=== PATIENT | male | born 1960 | race Caucasian/White ===

== ENCOUNTER 2017-07-02 09:36 | Emergency (ER) | payer OTHER, BC | END 2017-07-02 11:00 | disposition home or self-care (01) | LOC: E/R 09:36 | DX: J20.9 Acute bronchitis, unspecified (principal) | CPT/HCPCS: 99284; Z7502 ==

== ENCOUNTER 2017-09-02 08:04 | Inpatient (IN) | payer OTHER ==
[2017-09-02] MEDS: SOD CHLORIDE 0.9% 1,000 ML IV (08:26)
[2017-09-02 08:38] LABS: ABNORMAL IP MESSAGE 1; HEMATOCRIT 20.3 % (42.0-52.0); HEMOGLOBIN 7.2 g/dl (14.0-18.0); MEAN CORPUSCULAR HEMOGLOBIN 36.9 pg (29.0-33.0); MEAN CORPUSCULAR HGB CONC 35.5 g/dl (32.0-37.0); MEAN CORPUSCULAR VOLUME 104.1 fl (82.0-101.0); MEAN PLATELET VOLUME 10.3 fl (7.4-10.4); NUCLEATED RED BLOOD CELLS% 0.9 /100WBC (0.0-0.0); PLATELET COUNT 229 10^3/UL (140-415); POSITIVE DIFF @See below; RED BLOOD COUNT 1.95 10^6/ul (4.70-6.10); RED CELL DISTRIBUTION WIDTH 16.7 % (11.5-14.5)
[2017-09-02 08:43] LABS: ADD MAN DIFF? YES
[2017-09-02 08:43] LABS: WHITE BLOOD COUNT 457.1 10^3/ul (4.8-10.8)
[2017-09-02 08:55] LABS: ALANINE AMINOTRANSFERASE 13 IU/L (13-69); ALBUMIN 3.9 g/dl (3.3-4.9); ALBUMIN/GLOBULIN RATIO 1.14; ALKALINE PHOSPHATASE 66 IU/L (42-121); ANION GAP 13 (8-16); ASPARTATE AMINO TRANSFERASE 38 IU/L (15-46); BILIRUBIN,INDIRECT 0.5 mg/dl (0-1.1); BILIRUBIN,TOTAL 0.5 mg/dl (0.2-1.3); BLOOD UREA NITROGEN 27 mg/dl (7-20); CARBON DIOXIDE 24 mmol/L (21-31); CHLORIDE 112 mmol/L (97-110); CREATININE 1.15 mg/dl (0.61-1.24); GLUCOSE 124 mg/dl (70-220); POTASSIUM 3.5 mmol/L (3.5-5.1); SODIUM 145 mmol/L (135-144); TOTAL PROTEIN 7.3 g/dl (6.1-8.1)
[2017-09-02 08:56] LABS: LACTIC ACID 1.2 mmol/L (0.5-2.0)
[2017-09-02 09:01] LABS: INR 1.21; PROTIME 15.5 Sec (11.9-14.9); PT RATIO 1.2
[2017-09-02 09:02] LABS: PARTIAL THROMBOPLASTIN TIME 35.4 Sec (25.0-35.0)
[2017-09-02 09:06] LABS: B-TYPE NATRIURETIC PEPTIDE 46 PG/ML (0-125)
[2017-09-02 09:12] LABS: TROPONIN-I < 0.012 ng/ml (0.000-0.120)
[2017-09-02] MEDS: IOHEXOL 100 ML (09:52)
[2017-09-02] MEDS: SOD CHLORIDE 0.9% 100 ML (09:52)
[2017-09-02] MEDS: SOD CHLORIDE 0.9% 250 ML IV (10:13)
[2017-09-02 10:29] LABS: ANISOCYTOSIS 1+ (0-0); BAND NEUTROPHILS #M 77.7 10^3/ul (0.0-0.6); BAND NEUTROPHILS % (M) 17 % (0-4); BASOPHIL #M 13.7 10^3/ul (0.0-0.0); BASOPHILS % (M) 3 % (0-2); BLAST% (M) 13.7 % (0-0); EOSINOPHILS % (M) 10 % (0-7); ERYTHROBLAST% (NRBC) (M) 1 % (0-0); LYMPHOCYTES #M 9.1 10^3/ul (0.8-2.9); LYMPHOCYTES % (M) 2 % (15-51); METAMYELOCYTES #M 4.5 10^3/ul (0.0-0.0); METAMYELOCYTES %M 1 % (0-0); MICROCYTOSIS 1+ (0-0); MONOCYTE #M 18.2 10^3/ul (0.3-0.9); MONOCYTES % (M) 4 % (0-11); MYELOCYTES #M 9.1 10^3/ul (0.0-0.0); MYELOCYTES % (M) 2 % (0-0); PLATELET ESTIMATE NORMAL; POLYCHROMASIA 3+ (0-0); RBC MORPHOLOGY COMMENT @See below; REACTIVE LYMPHOCYTES #M 9.1 10^3/ul (0.0-0.0); REACTIVE LYMPHOCYTES% (M) 2 % (0-0); SEG NEUT #M 565.4 10^3/ul (1.6-7.5); SEGMENTED NEUTROPHILS (M) % 46 % (39-77); SMUDGE%M 17 % (0-0); WBC MORPHOLOGY COMMENT @See below
[2017-09-02 11:02] LABS: URIC ACID 9.4 mg/dl (3.1-7.9)
[2017-09-02 11:02] LABS: LACTATE DEHYDROGENASE 1742 IU/L (313-618)
[2017-09-02 11:04] LABS: LACTIC ACID 0.6 mmol/L (0.5-2.0)
[2017-09-02] MEDS: HYDROXYUREA 500 MG CAP PO ×2 (11:14→21:14)
[2017-09-02] MEDS: ALLOPURINOL 300 MG TAB PO (11:14)
[2017-09-02 11:19] LABS: LACTIC ACID 0.6 mmol/L (0.5-2.0)
[2017-09-02] MEDS ORDERED: ACETAMINOPHEN 325 MG TAB PO (11:30)
[2017-09-02] MEDS ORDERED: ONDANSETRON 4 MG INJ IV ×2 (11:30→14:30)
[2017-09-02 11:41] LABS: ADD UMIC NO; UR ASCORBIC ACID NEGATIVE (NEGATIVE); UR BILIRUBIN (Dip) NEGATIVE (NEGATIVE); UR BLOOD (Dip) NEGATIVE (NEGATIVE); UR CLARITY CLEAR (CLEAR); UR COLOR YELLOW (YELLOW); UR GLUCOSE (Dip) NEGATIVE (NEGATIVE); UR KETONES (Dip) NEGATIVE (NEGATIVE); UR LEUKOCYTE ESTERASE (Dip) NEGATIVE Leu/ul (NEGATIVE); UR NITRITE (Dip) NEGATIVE (NEGATIVE); UR SPECIFIC GRAVITY (Dip) 1.046 (1.003-1.030); UR TOTAL PROTEIN (Dip) NEGATIVE (NEGATIVE); UR UROBILINOGEN (Dip) NEGATIVE (NEGATIVE)
[2017-09-02] MEDS ORDERED: ALBUTEROL/IPRATROPIUM (NEB) 3 ML AMP HHN (14:30)
[2017-09-02] MEDS: ACETAMINOPHEN 325 MG TAB PO (17:28)
[2017-09-02] MEDS: FAMOTIDINE 20 MG TAB PO ×2 (19:34→21:15)
[2017-09-02] MEDS: ALBUTEROL/IPRATROPIUM (NEB) 3 ML AMP HHN (20:49)
[2017-09-03] MEDS: ALBUTEROL/IPRATROPIUM (NEB) 3 ML AMP HHN ×2 (01:36→08:32)
[2017-09-03 06:17] LABS: ABNORMAL IP MESSAGE 1; HEMATOCRIT 19.1 % (42.0-52.0); MEAN CORPUSCULAR HEMOGLOBIN 36.1 pg (29.0-33.0); MEAN CORPUSCULAR HGB CONC 36.1 g/dl (32.0-37.0); MEAN PLATELET VOLUME 10.5 fl (7.4-10.4); NUCLEATED RED BLOOD CELLS% 1.2 /100WBC (0.0-0.0); PLATELET COUNT 169 10^3/UL (140-415); POSITIVE DIFF @See below; RED BLOOD COUNT 1.91 10^6/ul (4.70-6.10); RED CELL DISTRIBUTION WIDTH 16.8 % (11.5-14.5)
[2017-09-03 06:25] LABS: ADD MAN DIFF? YES
[2017-09-03 06:27] LABS: HEMOGLOBIN 6.9 g/dl (14.0-18.0)
[2017-09-03 06:51] LABS: ALANINE AMINOTRANSFERASE 23 IU/L (13-69); ALBUMIN 3.2 g/dl (3.3-4.9); ALBUMIN/GLOBULIN RATIO 1.06; ALKALINE PHOSPHATASE 57 IU/L (42-121); ANION GAP 11 (8-16); ASPARTATE AMINO TRANSFERASE 35 IU/L (15-46); BILIRUBIN,INDIRECT 0.7 mg/dl (0-1.1); BILIRUBIN,TOTAL 0.7 mg/dl (0.2-1.3); BLOOD UREA NITROGEN 20 mg/dl (7-20); CALCIUM 8.3 mg/dl (8.4-10.2); CARBON DIOXIDE 23 mmol/L (21-31); CHLORIDE 112 mmol/L (97-110); CREATININE 0.95 mg/dl (0.61-1.24); GLUCOSE 103 mg/dl (70-220); POTASSIUM 3.3 mmol/L (3.5-5.1); SODIUM 143 mmol/L (135-144); TOTAL PROTEIN 6.2 g/dl (6.1-8.1)
[2017-09-03 08:29] LABS: ANISOCYTOSIS 1+ (0-0); BAND NEUTROPHILS % (M) 25 % (0-4); BASOPHIL #M 43.6 10^3/ul (0.0-0.0); BASOPHILS % (M) 13 % (0-2); EOSINOPHILS % (M) 4 % (0-7); ERYTHROBLAST% (NRBC) (M) 4 % (0-0); GIANT THROMBO% (M) 1 % (0-0); HYPOCHROMASIA 1+ (0-0); LYMPHOCYTES % (M) 3 % (15-51); METAMYELOCYTES %M 3 % (0-0); MONOCYTE #M 33.6 10^3/ul (0.3-0.9); MONOCYTES % (M) 10 % (0-11); MYELOCYTES #M 40.3 10^3/ul (0.0-0.0); MYELOCYTES % (M) 12 % (0-0); PLATELET ESTIMATE NORMAL; POIKILOCYTOSIS 1+ (0-0); POLYCHROMASIA 1+ (0-0); PROMYELOCYTES #M 20.1 10^3/ul (0-0); PROMYELOCYTES % (M) 6 % (0-0); REACTIVE LYMPHOCYTES #M 6.7 10^3/ul (0.0-0.0); REACTIVE LYMPHOCYTES% (M) 2 % (0-0); SEG NEUT #M 346.1 10^3/ul (1.6-7.5); SEGMENTED NEUTROPHILS (M) % 19 % (39-77)
[2017-09-03] MEDS: FAMOTIDINE 20 MG TAB PO ×2 (09:30→20:45)
[2017-09-03] MEDS: HYDROXYUREA 500 MG CAP PO ×2 (09:31→20:47)
[2017-09-03 10:14] LABS: IMMEDIATE SPIN CROSSMATCH 1 3
[2017-09-03] MEDS: POTASSIUM CHLORIDE (SR) 20 MEQ TAB PO (16:52)
[2017-09-03] MEDS: ACETAMINOPHEN 325 MG TAB PO (20:44)
[2017-09-04 06:22] LABS: WHITE BLOOD COUNT 370.4 10^3/ul (4.8-10.8)
[2017-09-04 06:22] LABS: ABNORMAL IP MESSAGE 1; HEMOGLOBIN 8.3 g/dl (14.0-18.0); MEAN CORPUSCULAR HEMOGLOBIN 35.8 pg (29.0-33.0); MEAN CORPUSCULAR HGB CONC 36.1 g/dl (32.0-37.0); MEAN CORPUSCULAR VOLUME 99.1 fl (82.0-101.0); MEAN PLATELET VOLUME 10.7 fl (7.4-10.4); NUCLEATED RED BLOOD CELLS% 1.2 /100WBC (0.0-0.0); PLATELET COUNT 210 10^3/UL (140-415); RED BLOOD COUNT 2.32 10^6/ul (4.70-6.10); RED CELL DISTRIBUTION WIDTH 16.7 % (11.5-14.5)
[2017-09-04 06:45] LABS: ADD MAN DIFF? YES
[2017-09-04 07:18] LABS: ANION GAP 9 (8-16); BLOOD UREA NITROGEN 16 mg/dl (7-20); CALCIUM 8.5 mg/dl (8.4-10.2); CARBON DIOXIDE 23 mmol/L (21-31); CHLORIDE 114 mmol/L (97-110); CREATININE 0.95 mg/dl (0.61-1.24); GLUCOSE 97 mg/dl (70-220); POTASSIUM 3.3 mmol/L (3.5-5.1); SODIUM 143 mmol/L (135-144)
[2017-09-04] MEDS: ALLOPURINOL 100 MG TAB PO (08:34)
[2017-09-04] MEDS: FAMOTIDINE 20 MG TAB PO ×2 (08:34→20:58)
[2017-09-04] MEDS: HYDROXYUREA 500 MG CAP PO ×3 (08:38→20:58)
[2017-09-04 10:19] LABS: BAND NEUTROPHILS #M 59.2 10^3/ul (0.0-0.6); BAND NEUTROPHILS % (M) 16 % (0-4); BASOPHIL # 14.8 10^3/ul (0.0-0.1); BLASTOCYTES #M 41.1 10^3/ul (0.0-0.0); EOSINOPHILS # 14.8 10^3/ul (0.0-0.5); EOSINOPHILS % (M) 4 % (0.0-7.0); ERYTHROBLAST% (NRBC) (M) 3 % (0-0); LYMPHOCYTES # 7.4 10^3/ul (0.8-2.9); LYMPHOCYTES #M 7.4 10^3/ul (0.8-2.9); LYMPHOCYTES % (M) 2 % (15-51); METAMYELOCYTES #M 3.7 10^3/ul (0.0-0.0); METAMYELOCYTES %M 1 % (0-0); MONOCYTE # 3.7 10^3/ul (0.3-0.9); MONOCYTE #M 3.7 10^3/ul (0.3-0.9); MONOCYTES % (M) 1 % (0-11); MYELOCYTES #M 70.3 10^3/ul (0.0-0.0); MYELOCYTES % (M) 19 % (0-0); PROMYELOCYTES #M 29.6 10^3/ul (0-0); PROMYELOCYTES % (M) 8 % (0-0); SEG NEUT #M 374.8 10^3/ul (1.7-7.5); SEGMENTED NEUTROPHILS (M) % 42 % (39-77)
[2017-09-04 10:22] LABS: POLYCHROMASIA 1+ (0-0)
[2017-09-04 11:54] LABS: URIC ACID 7.4 mg/dl (3.1-7.9)
[2017-09-04] MEDS: ZOLPIDEM 5 MG TAB PO (21:01)
[2017-09-05 05:41] LABS: ABNORMAL IP MESSAGE 1; HEMATOCRIT 23.4 % (42.0-52.0); HEMOGLOBIN 8.3 g/dl (14.0-18.0); MEAN CORPUSCULAR HEMOGLOBIN 35.5 pg (29.0-33.0); MEAN CORPUSCULAR HGB CONC 35.5 g/dl (32.0-37.0); MEAN PLATELET VOLUME 10.7 fl (7.4-10.4); NUCLEATED RED BLOOD CELLS% 0.8 /100WBC (0.0-0.0); PLATELET COUNT 240 10^3/UL (140-415); RED BLOOD COUNT 2.34 10^6/ul (4.70-6.10); RED CELL DISTRIBUTION WIDTH 16.4 % (11.5-14.5)
[2017-09-05 05:46] LABS: ADD MAN DIFF? YES
[2017-09-05 06:14] LABS: ANION GAP 8 (8-16); BLOOD UREA NITROGEN 16 mg/dl (7-20); CALCIUM 8.7 mg/dl (8.4-10.2); CARBON DIOXIDE 25 mmol/L (21-31); CHLORIDE 112 mmol/L (97-110); GLUCOSE 116 mg/dl (70-220); POTASSIUM 3.2 mmol/L (3.5-5.1); SODIUM 142 mmol/L (135-144)
[2017-09-05 07:52] LABS: ANISOCYTOSIS 1+ (0-0); LYMPHOCYTES % (M) 3 % (15-51); MICROCYTOSIS 1+ (0-0); PLATELET ESTIMATE NORMAL; POLYCHROMASIA 1+ (0-0); SMUDGE%M 3 % (0-0)
[2017-09-05] MEDS: ALLOPURINOL 100 MG TAB PO (08:37)
[2017-09-05] MEDS: FAMOTIDINE 20 MG TAB PO ×2 (08:37→22:16)
[2017-09-05] MEDS: HYDROXYUREA 500 MG CAP PO ×3 (08:39→22:18)
[2017-09-05] MEDS: POTASSIUM CHLORIDE (SR) 20 MEQ TAB PO (18:46)
[2017-09-06 05:46] LABS: ABNORMAL IP MESSAGE 1; HEMATOCRIT 24.2 % (42.0-52.0); HEMOGLOBIN 8.5 g/dl (14.0-18.0); MEAN CORPUSCULAR HEMOGLOBIN 34.6 pg (29.0-33.0); MEAN CORPUSCULAR HGB CONC 35.1 g/dl (32.0-37.0); MEAN CORPUSCULAR VOLUME 98.4 fl (82.0-101.0); MEAN PLATELET VOLUME 10.7 fl (7.4-10.4); NUCLEATED RED BLOOD CELLS% 1.1 /100WBC (0.0-0.0); PLATELET COUNT 257 10^3/UL (140-415); POSITIVE DIFF @See below; RED BLOOD COUNT 2.46 10^6/ul (4.70-6.10); RED CELL DISTRIBUTION WIDTH 16.1 % (11.5-14.5)
[2017-09-06 05:46] LABS: WHITE BLOOD COUNT 295.2 10^3/ul (4.8-10.8)
[2017-09-06 06:35] LABS: ADD MAN DIFF? YES
[2017-09-06] MEDS: FAMOTIDINE 20 MG TAB PO ×2 (08:53→20:29)
[2017-09-06] MEDS: HYDROXYUREA 500 MG CAP PO ×4 (08:53→20:28)
[2017-09-06] MEDS: ALLOPURINOL 100 MG TAB PO ×2 (08:53→17:14)
[2017-09-06 09:19] LABS: ANISOCYTOSIS 1+ (0-0); BAND NEUTROPHILS % (M) 19 % (0-4); BASOPHIL #M 8.8 10^3/ul (0.0-0.0); BASOPHILS % (M) 3 % (0-2); EOSINOPHILS % (M) 1 % (0-7); ERYTHROBLAST% (NRBC) (M) 1 % (0-0); LYMPHOCYTES #M 14.7 10^3/ul (0.8-2.9); LYMPHOCYTES % (M) 5 % (15-51); METAMYELOCYTES #M 20.6 10^3/ul (0.0-0.0); METAMYELOCYTES %M 7 % (0-0); MONOCYTE #M 14.7 10^3/ul (0.3-0.9); MONOCYTES % (M) 5 % (0-11); MYELOCYTES #M 20.6 10^3/ul (0.0-0.0); MYELOCYTES % (M) 7 % (0-0); PLATELET ESTIMATE NORMAL; POIKILOCYTOSIS 1+ (0-0); POLYCHROMASIA 3+ (0-0); PROMYELOCYTES #M 14.7 10^3/ul (0-0); PROMYELOCYTES % (M) 5 % (0-0); SEG NEUT #M 259.8 10^3/ul (1.6-7.5); SEGMENTED NEUTROPHILS (M) % 32 % (39-77); SMUDGE%M 2 % (0-0)
[2017-09-06 09:36] LABS: BAND NEUTROPHILS % (M) 8 % (0-4); SEGMENTED NEUTROPHILS (M) % 54 % (39-77)
[2017-09-06 09:37] LABS: BASOPHILS % (M) 6 % (0-2); EOSINOPHILS % (M) 7 % (0-7); MONOCYTES % (M) 0 % (0-11)
[2017-09-06 09:38] LABS: METAMYELOCYTES %M 5 % (0-0); MYELOCYTES % (M) 4 % (0-0); PROMYELOCYTES % (M) 2 % (0-0)
[2017-09-06 09:41] LABS: BAND NEUTROPHILS #M 26.2 10^3/ul (0.0-0.6); BASOPHIL #M 19.7 10^3/ul (0.0-0.0); LYMPHOCYTES #M 9.8 10^3/ul (0.8-2.9); METAMYELOCYTES #M 16.4 10^3/ul (0.0-0.0); MYELOCYTES #M 13.1 10^3/ul (0.0-0.0); PROMYELOCYTES #M 6.5 10^3/ul (0-0); SEG NEUT #M 263.5 10^3/ul (1.6-7.5)
[2017-09-06 09:41] LABS: WHITE BLOOD COUNT 328.6 10^3/ul (4.8-10.8)
[2017-09-06 09:46] LABS: POSITIVE DIFF @See below
[2017-09-06] MEDS: DIPHENHYDRAMINE 50 MG INJ (14:38)
[2017-09-06] MEDS: FENTAnyl 50 MCG/ML VIAL (15:00)
[2017-09-06] MEDS: LIDOCAINE 1% (MDV) 10 ML INJ (15:05)
[2017-09-07 06:18] LABS: ADD MAN DIFF? NO
[2017-09-07 06:23] LABS: ABNORMAL IP MESSAGE 1; HEMATOCRIT 25.6 % (42.0-52.0); HEMOGLOBIN 8.6 g/dl (14.0-18.0); MEAN CORPUSCULAR HEMOGLOBIN 34.1 pg (29.0-33.0); MEAN CORPUSCULAR HGB CONC 33.6 g/dl (32.0-37.0); MEAN CORPUSCULAR VOLUME 101.6 fl (82.0-101.0); MEAN PLATELET VOLUME 11.3 fl (7.4-10.4); NUCLEATED RED BLOOD CELLS% 1.3 /100WBC (0.0-0.0); PLATELET COUNT 255 10^3/UL (140-415); POSITIVE DIFF @See below; RED BLOOD COUNT 2.52 10^6/ul (4.70-6.10); RED CELL DISTRIBUTION WIDTH 15.9 % (11.5-14.5)
[2017-09-07 06:23] LABS: WHITE BLOOD COUNT 242.4 10^3/ul (4.8-10.8)
[2017-09-07 07:12] LABS: ANION GAP 13 (8-16); BLOOD UREA NITROGEN 19 mg/dl (7-20); CALCIUM 8.7 mg/dl (8.4-10.2); CARBON DIOXIDE 20 mmol/L (21-31); CHLORIDE 111 mmol/L (97-110); CREATININE 1.03 mg/dl (0.61-1.24); GLUCOSE 88 mg/dl (70-220); POTASSIUM 3.9 mmol/L (3.5-5.1); SODIUM 140 mmol/L (135-144)
[2017-09-07] MEDS: FAMOTIDINE 20 MG TAB PO ×2 (08:47→20:35)
[2017-09-07] MEDS: ALLOPURINOL 100 MG TAB PO (08:47)
[2017-09-07] MEDS: HYDROXYUREA 500 MG CAP PO ×3 (08:51→20:36)
[2017-09-07 10:03] LABS: ANISOCYTOSIS 2+ (0-0); BAND NEUTROPHILS #M 24.2 10^3/ul (0.0-0.6); BAND NEUTROPHILS % (M) 10 % (0-4); BASOPHIL #M 19.3 10^3/ul (0.0-0.0); BASOPHILS % (M) 8 % (0-2); BURR CELLS 2+ (0-0); EOSINOPHILS % (M) 4 % (0-7); LYMPHOCYTES #M 31.5 10^3/ul (0.8-2.9); LYMPHOCYTES % (M) 13 % (15-51); METAMYELOCYTES #M 9.6 10^3/ul (0.0-0.0); METAMYELOCYTES %M 4 % (0-0); MICROCYTOSIS 1+ (0-0); MONOCYTE #M 24.2 10^3/ul (0.3-0.9); MONOCYTES % (M) 10 % (0-11); MYELOCYTES #M 12.1 10^3/ul (0.0-0.0); MYELOCYTES % (M) 5 % (0-0); PLATELET ESTIMATE NORMAL; PROMYELOCYTES #M 12.1 10^3/ul (0-0); PROMYELOCYTES % (M) 5 % (0-0); REACTIVE LYMPHOCYTES #M 7.2 10^3/ul (0.0-0.0); REACTIVE LYMPHOCYTES% (M) 3 % (0-0); SEG NEUT #M 138.7 10^3/ul (1.6-7.5); SEGMENTED NEUTROPHILS (M) % 33 % (39-77); SMUDGE%M 1 % (0-0)
[2017-09-08 06:21] LABS: WHITE BLOOD COUNT 247.6 10^3/ul (4.8-10.8)
[2017-09-08 06:21] LABS: ABNORMAL IP MESSAGE 1; HEMATOCRIT 25.6 % (42.0-52.0); HEMOGLOBIN 8.4 g/dl (14.0-18.0); MEAN CORPUSCULAR HEMOGLOBIN 33.2 pg (29.0-33.0); MEAN CORPUSCULAR HGB CONC 32.8 g/dl (32.0-37.0); MEAN CORPUSCULAR VOLUME 101.2 fl (82.0-101.0); MEAN PLATELET VOLUME 10.8 fl (7.4-10.4); NUCLEATED RED BLOOD CELLS% 0.9 /100WBC (0.0-0.0); PLATELET COUNT 300 10^3/UL (140-415); POSITIVE DIFF @See below; RED BLOOD COUNT 2.53 10^6/ul (4.70-6.10); RED CELL DISTRIBUTION WIDTH 16.3 % (11.5-14.5)
[2017-09-08 06:48] LABS: ANION GAP 11 (8-16); BLOOD UREA NITROGEN 18 mg/dl (7-20); CALCIUM 8.7 mg/dl (8.4-10.2); CARBON DIOXIDE 21 mmol/L (21-31); CHLORIDE 112 mmol/L (97-110); CREATININE 1.05 mg/dl (0.61-1.24); GLUCOSE 100 mg/dl (70-220); POTASSIUM 4.3 mmol/L (3.5-5.1); SODIUM 140 mmol/L (135-144); URIC ACID 7.3 mg/dl (3.1-7.9)
[2017-09-08 06:56] LABS: ADD MAN DIFF? YES
[2017-09-08] MEDS: FAMOTIDINE 20 MG TAB PO (08:37)
[2017-09-08] MEDS: ALLOPURINOL 100 MG TAB PO (08:37)
[2017-09-08] MEDS: HYDROXYUREA 500 MG CAP PO ×2 (08:39→13:09)
[2017-09-08 10:15] LABS: ANISOCYTOSIS 1+ (0-0); BAND NEUTROPHILS #M 34.6 10^3/ul (0.0-0.6); BAND NEUTROPHILS % (M) 14 % (0-4); BASOPHIL #M 34.6 10^3/ul (0.0-0.0); BASOPHILS % (M) 14 % (0-2); BURR CELLS 1+ (0-0); EOSINOPHILS % (M) 2 % (0-7); ERYTHROBLAST% (NRBC) (M) 2 % (0-0); LYMPHOCYTES #M 12.3 10^3/ul (0.8-2.9); LYMPHOCYTES % (M) 5 % (15-51); METAMYELOCYTES #M 9.9 10^3/ul (0.0-0.0); METAMYELOCYTES %M 4 % (0-0); MONOCYTE #M 27.2 10^3/ul (0.3-0.9); MONOCYTES % (M) 11 % (0-11); MYELOCYTES #M 4.9 10^3/ul (0.0-0.0); MYELOCYTES % (M) 2 % (0-0); PLATELET ESTIMATE NORMAL; POIKILOCYTOSIS 1+ (0-0); POLYCHROMASIA 1+ (0-0); REACTIVE LYMPHOCYTES #M 14.8 10^3/ul (0.0-0.0); REACTIVE LYMPHOCYTES% (M) 6 % (0-0); SEG NEUT #M 182.2 10^3/ul (1.6-7.5); SEGMENTED NEUTROPHILS (M) % 39 % (39-77); SMUDGE%M 1 % (0-0)
== END 2017-09-08 18:15 | disposition home or self-care (01) | DRG 842 ==
LOC: E/R 08:04 → MS2 11:09
PROC: 30233N1 Transfusion of Nonautologous Red Blood Cells into Peripheral Vein, Percutaneous Approach (ICD-10-PCS; 2017-09-02)
PROC: 30233N1 Transfusion of Nonautologous Red Blood Cells into Peripheral Vein, Percutaneous Approach (ICD-10-PCS; principal; 2017-09-03)
DX: C92.10 Chronic myeloid leukemia, BCR/ABL-positive, not having achieved remission (principal); I10 Essential (primary) hypertension; D63.0 Anemia in neoplastic disease; Z91.14 Patient's other noncompliance with medication regimen
CPT/HCPCS: 36415; 36430; 71045; 71275; 77012; 80048; 80053; 81003; 83605; 83615; 83880; 84484; 84560; 85025; 85610; 85730; 86644; 86850; 86900; 86901; 86920; 86945; 87040; 87086; 88305; 88311; 88313; 93005; 94640; 94664; 99285-25

== ENCOUNTER 2018-04-28 11:37 | Emergency (ER) | payer OTHER ==
[2018-04-28] MEDS: SOD CHLORIDE 0.9% 1,000 ML IV (13:10)
[2018-04-28] MEDS: ONDANSETRON 4 MG INJ IV (13:12)
[2018-04-28] MEDS: MECLIZINE 12.5 MG TAB PO (13:30)
[2018-04-28 13:31] LABS: ADD MAN DIFF? NO
[2018-04-28 13:33] LABS: HEMATOCRIT 44.9 % (42.0-52.0); MEAN CORPUSCULAR VOLUME 97.2 fl (82.0-101.0); RED BLOOD COUNT 4.62 10^6/ul (4.70-6.10)
[2018-04-28 13:34] LABS: BASOPHILS % 0.4 % (0.0-2.0); EOSINOPHILS # 0.1 10^3/ul (0.0-0.5); EOSINOPHILS % 1.1 % (0.0-7.0); LYMPHOCYTES # 1.1 10^3/ul (0.8-2.9); LYMPHOCYTES % 13.3 % (15.0-51.0); MEAN CORPUSCULAR HEMOGLOBIN 32.5 pg (29.0-33.0); MEAN CORPUSCULAR HGB CONC 33.4 g/dl (32.0-37.0); MEAN PLATELET VOLUME 9.1 fl (7.4-10.4); MONOCYTE # 0.5 10^3/ul (0.3-0.9); MONOCYTES % 5.8 % (0.0-11.0); NEUTROPHIL # 6.3 10^3/ul (1.6-7.5); NEUTROPHILS % 78.8 % (39.0-77.0); PLATELET COUNT 112 10^3/UL (140-415); RED CELL DISTRIBUTION WIDTH 12.5 % (11.5-14.5)
[2018-04-28 13:50] LABS: ALANINE AMINOTRANSFERASE 80 IU/L (13-69); ALBUMIN 4.8 g/dl (3.3-4.9); ALBUMIN/GLOBULIN RATIO 1.26; ALKALINE PHOSPHATASE 70 IU/L (42-121); ANION GAP 8 (5-13); ASPARTATE AMINO TRANSFERASE 97 IU/L (15-46); BILIRUBIN,INDIRECT 0.5 mg/dl (0-1.1); BILIRUBIN,TOTAL 0.5 mg/dl (0.2-1.3); BLOOD UREA NITROGEN 12 mg/dl (7-20); CARBON DIOXIDE 29 mmol/L (21-31); CHLORIDE 105 mmol/L (97-110); CREATINE KINASE 78 IU/L (23-200); Estimated GFR > 60 mL/min (>60); GLUCOSE 154 mg/dl (70-220); POTASSIUM 4.3 mmol/L (3.5-5.1); SODIUM 142 mmol/L (135-144); TOTAL PROTEIN 8.6 g/dl (6.1-8.1)
[2018-04-28 13:53] LABS: INR 0.94; PROTIME 12.7 Sec (11.9-14.9)
[2018-04-28 13:54] LABS: PARTIAL THROMBOPLASTIN TIME 33.2 Sec (23.0-35.0)
[2018-04-28 14:04] LABS: B-TYPE NATRIURETIC PEPTIDE 18 PG/ML (0-125); CK INDEX 0.6; CK-MB 0.46 ng/ml (0.0-2.4); TROPONIN-I < 0.012 ng/ml (0.000-0.120)
[2018-04-28 16:58] LABS: ADD UMIC NO; UR ASCORBIC ACID NEGATIVE (NEGATIVE); UR BILIRUBIN (Dip) NEGATIVE (NEGATIVE); UR BLOOD (Dip) NEGATIVE (NEGATIVE); UR CLARITY CLEAR (CLEAR); UR COLOR COLORLESS (YELLOW); UR GLUCOSE (Dip) NEGATIVE (NEGATIVE); UR KETONES (Dip) NEGATIVE (NEGATIVE); UR LEUKOCYTE ESTERASE (Dip) NEGATIVE Leu/ul (NEGATIVE); UR NITRITE (Dip) NEGATIVE (NEGATIVE); UR SPECIFIC GRAVITY (Dip) 1.003 (1.003-1.030); UR TOTAL PROTEIN (Dip) NEGATIVE (NEGATIVE); UR UROBILINOGEN (Dip) NEGATIVE (NEGATIVE)
== END 2018-04-28 17:22 | disposition home or self-care (01) ==
LOC: E/R 11:37
DX: R42 Dizziness and giddiness (principal); R11.10 Vomiting, unspecified
CPT/HCPCS: 70450; 80053; 81003; 82550; 82553; 83880; 84484; 85025; 85610; 85730; 93005; 96374; 99285-25